=== PATIENT | female | born 1975 | race African-American/Black ===

== ENCOUNTER 2016-11-02 10:35 | Emergency (ER) | payer OTHER ==
[~2016-11-02] VITALS: Ht 162.6 cm; Wt 66.2 kg
[2016-11-02 10:46] VITALS: BP 137/87
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
[2016-11-02] MEDS ORDERED: HYDR-971 PO (11:38)
[2016-11-02] MEDS ORDERED: DIPHTH,PERTUSS(ACELL),TET TOX 0.5 ML DISP.SYRIN. VAX IM ONE (12:15)
== END 2016-11-02 12:00 | disposition home or self-care (01) ==
LOC: ER 10:35
DX: T25.222A Burn of second degree of left foot, initial encounter (principal); J45.909 Unspecified asthma, uncomplicated; X10.1XXA Contact with hot food, initial encounter; Y93.G3 Activity, cooking and baking; Y99.8 Other external cause status; Y92.89 Other specified places as the place of occurrence of the external cause
CPT/HCPCS: 90471; 90715; 99283-25

== ENCOUNTER 2018-12-13 18:57 | Emergency (ER) | payer SELFPAY ==
[~2018-12-13] VITALS: Ht 165.1 cm; Wt 72.6 kg
[~2018-12-13 18:57] MED LIST: HYDR-3164 PO
[2018-12-13 19:10] VITALS: BP 132/86
--- NOTE | 2018-12-13 19:39 | PHYS DOC ---
Past Medical History Past Medical History: Asthma Past Surgical History: Alcohol Use: Occasionally Drug Use: None Adult General Chief Complaint Chief Complaint: OTHER COMPLAINTS HPI HPI 43-year-old female who states she has had a headache for the last couple days it 's been waxing and waning nothing severe there is no lateralizing neurologic weakness. She denies any trauma to her head. Her concern is that she has several piece sized areas of swelling at the superior portion of her neck up both sides of her skull. She states she has not noticed this previously. She denies any fever chills or sweats.[] Review of Systems Review of Systems Constitutional: Denies fever or chills [] Eyes: Denies change in visual acuity, redness, or eye pain [] HENT: Per history of present illness[] Respiratory: Denies cough or shortness of breath [] Cardiovascular: No additional information not addressed in HPI [] GI: Denies abdominal pain, nausea, vomiting, bloody stools or diarrhea [] : Denies dysuria or hematuria [] Musculoskeletal: Denies back pain or joint pain [] Integument: Denies rash or skin lesions [] Neurologic: Denies headache, focal weakness or sensory changes [] Endocrine: Denies polyuria or polydipsia [] All other systems were reviewed and found to be within normal limits, except as documented in this note. Allergies Allergies Allergies Coded Allergies Type Severity Reaction Last Updated Verified No Known Drug Allergies 11/13/13 No Physical Exam Physical Exam Constitutional: Well developed, well nourished, no acute distress, non-toxic appearance. [] HENT: She has some small occipital lymph nodes that are freely movable and no erythema nontender to palp. [] Eyes: PERRLA, EOMI, conjunctiva normal, no discharge. [] Neck: Normal range of motion, no tenderness, supple, no stridor. [] Cardiovascular:Heart rate regular rhythm, no murmur [] Lungs & Thorax: Bilateral breath sounds clear to auscultation [] Abdomen: Bowel sounds normal, soft, no tenderness, no masses, no pulsatile masses. [] Skin: Warm, dry, no erythema, no rash. [] Back: No tenderness, no CVA tenderness. [] Extremities: No tenderness, no cyanosis, no clubbing, ROM intact, no edema. [] Neurologic: Alert and oriented X 3, normal motor function, normal sensory function, no focal deficits noted. [] Psychologic: Anxious. [] EKG EKG [] Radiology/Procedures Radiology/Procedures [] Course & Med Decision Making Course & Med Decision Making Pertinent Labs and Imaging studies reviewed. (See chart for details) [] Dragon Disclaimer Dragon Disclaimer This electronic medical record was generated, in whole or in part, using a voice recognition dictation system. Departure Departure Impression: Primary Impression: Occipital lymphadenopathy Disposition: 01 HOME, SELF-CARE Condition: STABLE Referrals: NO PCP (PCP) Patient Instructions: Tension Headache Additional Instructions: Return to the emergency department with any new or concerning symptoms TODD GOODRICH DO Dec 13, 2018 19:39
== END 2018-12-13 20:00 | disposition home or self-care (01) ==
LOC: ER 18:57
DX: R59.0 Localized enlarged lymph nodes (principal); R51 Headache; J45.909 Unspecified asthma, uncomplicated; Z98.890 Other specified postprocedural states
CPT/HCPCS: 99281